=== PATIENT | female | born 1985 | race Caucasian/White ===

== ENCOUNTER 2019-12-02 15:52 | Emergency (ER) | payer MEDICAID, SELFPAY ==
[~2019-12-02] VITALS: Ht 157.5 cm; Wt 85.5 kg
[2019-12-02] MEDS ORDERED: OXAZEPAM 15 MG CAP PO ONE (16:30)
[2019-12-02 17:16] LABS: BASO % 0.3 % (0.0-1.0); EOS % 0.6 % (0.0-3.0); HEMATOCRIT 38.5 % (36.0-47.0); HEMOGLOBIN 13.3 g/dl (12.0-15.5); LYMPH # 0.9 10^3/uL (1.5-5.0); LYMPH % 13.1 % (24.0-44.0); MEAN CORPUSCULAR HEMOGLOBIN 33.5 pg (27.0-33.0); MEAN CORPUSCULAR HGB CONC 34.5 g/dl (32.0-36.5); MONO # 0.4 10^3/uL (0.0-0.8); NEUTROPHILS # 5.6 10^3/uL (1.5-8.5); NEUTROPHILS % 79.4 % (36.0-66.0); PLATELET COUNT, AUTOMATED 206 10^3/uL (150-450); RED BLOOD COUNT 3.97 10^6/uL (4.00-5.40)
[2019-12-02 17:19] LABS: PROTHROMBIN TIME 13.4 SECONDS (11.8-14.0)
[2019-12-02 17:41] LABS: ALBUMIN 3.8 GM/DL (3.2-5.2); ALT/SGPT 117 U/L (12-78); BILIRUBIN,DIRECT 0.4 MG/DL (0.0-0.2); BLOOD UREA NITROGEN 7 MG/DL (7-18); CARBON DIOXIDE LEVEL 19 MEQ/L (21-32); CHLORIDE LEVEL 107 MEQ/L (98-107); CREATININE FOR GFR 0.75 MG/DL (0.55-1.30); GLOMERULAR FILTRATION RATE > 60.0 (>60); GLUCOSE, FASTING 90 MG/DL (70-100); LIPASE 133 U/L (73-393); NT-PRO BNP 428 PG/ML (<125); POTASSIUM SERUM 3.8 MEQ/L (3.5-5.1); SODIUM LEVEL 138 MEQ/L (136-145); TOTAL PROTEIN 7.2 GM/DL (6.4-8.2)
[2019-12-02 18:41] VITALS: BP 129/99
--- NOTE | 2019-12-10 10:49 | ECGEPIP ---
[facility] - ED Test Date: 2019-12-02 Pat Name: KYLEE COX Department: Room: - Gender: Female [employer]: LOUIE : 1985 Requested By: Jazlyn Mcgill Order Number: [id number] Reading MD: Jazlyn Mcgill Measurements Intervals [place] Rate: 86 P: -2 [place]: 116 QRS: 4 QRSD: 85 T: 3 QT: 358 QTc: 430 Interpretive Statements SINUS RHYTHM WITH SHORT [place] INTERVAL MINIMAL VOLTAGE CRITERIA FOR LVH, CONSIDER NORMAL VARIANT BORDERLINE ECG SEE SCANNED DOWNTIME REPORT
--- NOTE | 2019-12-19 15:48 | REP ---
PORTABLE CHEST X-RAY: SINGLE VIEW (REPEAT DICTATION) HISTORY: Preliminary report is provided by [facility]. FINDINGS: Monitoring electrodes overlie the chest. The lungs are symmetrically aerated and clear. Heart is not enlarged. The aorta is somewhat tortuous. Pulmonary vasculature is not increased. No infiltrate is seen. IMPRESSION: No active disease MTDD
== END 2019-12-02 18:50 | disposition home or self-care (01) ==
LOC: M ED 15:52 → EDBD 15:52 → M ED 18:50
DX: F10.19 Alcohol abuse with unspecified alcohol-induced disorder (principal); R07.9 Chest pain, unspecified; I10 Essential (primary) hypertension; F41.9 Anxiety disorder, unspecified; F17.210 Nicotine dependence, cigarettes, uncomplicated; Z82.49 Family history of ischemic heart disease and other diseases of the circulatory system